=== PATIENT | female | born 1980 | race Caucasian/White ===

== ENCOUNTER 2016-04-09 12:17 | Inpatient (IN) | payer OTHER ==
[~2016-04-09] VITALS: Ht 154.9 cm; Wt 80.7 kg
[~2016-04-09 12:17] MED LIST: BUPROPION HCL150 MG PO; CLONAZEPAM0.5 MG PO; CLONAZEPAM1 M2 PO; FLEXERIL 10MG T10 MG PO; FLEXERIL10 MG PO; GABAPENTIN100 MG PO; HYDROCODONE/ACE1 TA5 PO; IBUPROFEN600 M1 PO; IBUPROFEN800 MG PO; MOBIC15 M1 PO; NAPROXEN500 M1 PO; NORCO 325 MG-51 TAB PO; OXYCODONE5 M1 PO; PANTOPRAZOLE SO40 M1 PO; TRAMADOL50 MG PO; VICODIN ES 3001 TAB PO; WELLBUTRIN XL300 M2 PO; ZOLPIDEM TARTRA10 MG PO
--- NOTE | 2016-04-09 12:40 | NUR ---
PT TO ED WITH C/O INCREASING CONGESTION, SAW THERAPIST THIS MORNING, SHE FELT I SHOULD COME IN FOR A PSYCH EVAL, "I DON'T FEEL SUICIDAL OR FEEL LIKE I'M GOING TO HURT MYSELF OR ANYONE ELSE". "I JUST QUIT DRINKING IT'S BEEN 60 DAYS, AND I QUIT SMOKING TOO, I JUST STARTED A DIET PILL".
--- NOTE | 2016-04-09 12:55 | NUR ---
ARUNA FROM [facility] IN [place] [phone] CALLED WITH PATIENT INFORMATION, SHE REFERRED PATIENT TO ED CARE IN [facility] JUNG CROWELL FOAM TANK LAMINATOR [id number] COUNSELER IS RAQUEL BAUMANN
--- NOTE | 2016-04-09 13:04 | ED PSYCHIATRIC COMPLAINT ---
History of Present Illness General Chief Complaint: Psychiatric Related Complaint Stated Complaint: PSYCH EVAL Source: patient, family Exam Limitations: no limitations Vital Signs & Intake/Output Vital Signs & Intake/Output Vital Signs Date Time Temp Pulse Resp B/P Pulse O2 O2 Flow FiO2 Ox Delivery Rate 04/09 1431 97.2 68 18 122/78 98 Room Air 04/09 1239 96.5 71 20 125/87 99 Room Air Room Air Allergies Coded Allergies: oxycodone (Intermediate, ITCHY/RASH 04/09/16) Reconcile Medications Bupropion HCl (Bupropion XL) 300 MG TAB.ER.24H 1 TAB PO QAM MENTAL HEALTH ( Reported) Bupropion HCl (Bupropion XL) 150 MG TAB.ER.24H 1 TAB PO QAM MENTAL HEALTH ( Reported) Clonazepam 1 MG TABLET 1 TAB PO BID ANXIETY (Reported) Gabapentin 400 MG CAPSULE 1 CAP PO TID MENTAL HEALTH (Reported) Ibuprofen 600 MG TABLET 1 TAB PO TID PRN PAIN with food Pantoprazole Sodium 40 MG TABLET.DR 1 TAB PO BID GI (Reported) Triage Note: PT TO ED WITH C/O INCREASING CONGESTION, SAW THERAPIST THIS MORNING, SHE FELT I SHOULD COME IN FOR A PSYCH EVAL, "I DON'T FEEL SUICIDAL OR FEEL LIKE I'M GOING TO HURT MYSELF OR ANYONE ELSE". "I JUST QUIT DRINKING IT'S BEEN 60 DAYS, AND I QUIT SMOKING TOO, I JUST STARTED A DIET PILL". Triage Nurses Notes Reviewed? yes : No Patient currently breastfeeds: No HPI: Patient sent in from her therapist at [facility] for evaluation of increasing depression and feels hopelessness. Patient denies any suicidal or homicidal medications. Patient just feels that she has no reasons to go on. Patient denies any current hallucinations. Patient states that she goes to [facility] but has seen multiple different providers and changing on her medications. Patient states that she has been taking her medications as prescribed. Past History Travel History Traveled to [place] past 21 day No Medical History Any Pertinent Medical History? 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 No Review of Systems Review of Systems Constitutional: Reports: no symptoms. EENTM: Reports: no symptoms. Respiratory: Reports: no symptoms. Cardiovascular: Reports: no symptoms. GI: Reports: no symptoms. Genitourinary: Reports: no symptoms. Musculoskeletal: Reports: no symptoms. Skin: Reports: no symptoms. Neurological/Psychological: Reports: see HPI, depressed. Hematologic/Endocrine: Reports: no symptoms. Immunologic/Allergic: Reports: no symptoms. All Other Systems: Reviewed and Negative Physical Exam Physical Exam General Appearance: well developed/nourished, mild distress Head: atraumatic Eyes: Bilateral: PERRL, EOMI. Ears, Nose, Throat: normal pharynx, normal ENT inspection, hearing grossly normal Neck: normal inspection, supple Respiratory: normal breath sounds Cardiovascular: regular rate/rhythm Gastrointestinal: soft, non-tender Extremities: normal range of motion Neurological/Psychiatric: no motor/sensory deficits, alert, calm, oriented x 3 Appearance/Memory/Insight: appropriate appearance, appropriate insight Behavoir/Eye Contact/Speech: cooperative, normal speech, good eye contact Thoughts/Hallucinations: normal thought pattern, no apparent hallucination Skin: intact, normal color, warm/dry SAD PERSONS Done? CRISIS CONSULT OBTAINED Progress Differential Diagnosis: drug intoxication, drug overdose, drug withdrawal, electrolyte abnormality Plan of Care: Orders Procedure Date/time Status Regular Diet 04/10 B Active Admit to inpatient psych 04/09 1637 Active URINE 04/09 1627 Active Patient Data - inpatient psych 04/09 1624 Active Admit to inpatient psych 04/09 1624 Active Add-on Test (ER Only) 04/09 1330 Active Continuous Observation Monitor 04/09 1303 Active URINE DRUGS OF ABUSE 04/09 1303 Complete THYROID STIMULATING HORMONE 04/09 1303 Complete TOTAL TRIODOTHYROXINE 04/09 1303 Complete FREE T4 04/09 1303 Complete ETHANOL 04/09 1303 Complete COMPREHENSIVE METABOLIC PANEL 04/09 1303 Complete CBC WITHOUT DIFFERENTIAL 04/09 1303 Complete ED CRISIS PSYCH CONSULT 04/09 1303 Active Vital Signs 04/09 UNK Active Nursing Misc 04/09 UNK Active Alternative Nursing Therapy 04/09 UNK Active Activity/Ambulation 04/09 UNK Active Current Medications Sig/Micaela Start time Last Medication Dose Stop Time Status Admin Bupropion HCl 450 MG DAILY@0800 04/10 0800 UNVr (Wellbutrin XL) Omeprazole 40 MG DAILY AC 04/10 0700 UNVr (Prilosec) Gabapentin 400 MG TID 04/09 2200 UNVr (Neurontin) Ibuprofen 600 MG Q6P PRN 04/09 164 UNVr (Motrin) Lorazepam 1 MG ONE ONE 04/09 164 UNVr (Ativan) 04/09 1646 Al Hydroxide/Mg 30 ML Q4-6 PRN PRN 04/09 1630 UNVr Hydroxide (Maalox Plus) Clonazepam 0.5 MG Q8P PRN 04/09 163 UNVr (KlonoPIN) 04/16 1629 Magnesium Hydroxide 30 ML AT BEDTIME PRN 04/09 1630 UNVr (Milk Of Magnesia) Trazodone HCl 50 MG AT BEDTIME NEED.. 04/09 1630 UNVr (Desyrel) Laboratory Tests 04/09/16 1434: Urine Opiates Screen < 100.00, Methadone Screen < 40, Barbiturate Screen < 60, Ur Phencyclidine Scrn < 6.00, Amphetamines Screen 464, U Benzodiazepines Scrn < 85, Urine Cocaine Screen < 50, Urine Cannabis Screen < 5.00 04/09/16 1356: Anion Gap 11, Estimated GFR > 60, BUN/Creatinine Ratio 11.1, Glucose 119 H, Calcium 9.5, Total Bilirubin 0.7, AST 21, ALT 31, Alkaline Phosphatase 64, Total Protein 7.9, Albumin 4.4, Globulin 3.5, Albumin/Globulin Ratio 1.3, TSH 1.340, Free T4 0.96, Total T3 1.43, CBC w Diff NO MAN DIFF REQ, RBC 4.43, MCV 87.9, MCH 29.2, RDW 13.4, MPV 8.4, Gran % 68.5, Lymphocytes % 24.1, Monocytes % 5.8, Eosinophils % 1.3, Basophils % 0.3, Absolute Granulocytes 6.9 H, Absolute Lymphocytes 2.4, Absolute Monocytes 0.6, Absolute Eosinophils 0.1, Absolute Basophils 0, PUBS MCHC 33.2, Serum Alcohol < 10.0 Departure Departure Disposition: STILL A PATIENT Condition: Stable Clinical Impression Primary Impression: Depression Qualifiers: Depression Type: unspecified Qualified Code: F32.9 - Major depressive disorder, single episode, unspecified Referrals: Lucas MEZA MD (PCP/Family) Departure Forms: Customer Survey General Discharge Information Psych Admission Note Psychiatric Admission: I have seen and evaluated JORJE DE LA FUENTE. I have also reviewed all the pertinent lab results and diagnostic results. JORJE DE LA FUENTE will be admitted to our inpatient Psychiatric unit for treatment and care.
--- NOTE | 2016-04-09 13:08 | NUR ---
MD AT BEDSIDE AT THIS TIME
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
[2016-04-09 14:03] LABS: ABSOLUTE BASOPHIL COUNT 0 /CUMM (0.0-0.2)
[2016-04-09 14:06] LABS: ABSOLUTE EOSINOPHIL COUNT 0.1 /CUMM (0.0-0.7); ABSOLUTE MONOCYTE COUNT 0.6 /CUMM (0.10-0.60); MEAN PLATELET VOLUME 8.4 FL (7.4-10.4); RED BLOOD CELL CT 4.43 /CUMM (4.20-5.40)
[2016-04-09 14:08] LABS: ABSOLUTE GRANULOCYTE CT 6.9 /CUMM (1.4-6.5); ABSOLUTE LYMPH COUNT 2.4 /CUMM (1.2-3.4); BASOPHIL % 0.3 % (0.0-2.0); EOSINOPHIL % 1.3 % (0-5); GRANULOCYTE % 68.5 % (42.2-75.2); MEAN CORPUSCULAR HGB 29.2 PG (27.0-31.0); MEAN CORPUSCULAR HGB CONC 33.2 G/DL (33.0-37.0); MEAN CORPUSCULAR VOLUME 87.9 FL (81.0-99.0); PLATELET COUNT 338 /CUMM (130-400); RBC DISTRIBUTION WIDTH 13.4 % (11.5-14.5); WHITE BLOOD CELL COUNT 10.1 /CUMM (4.8-10.8)
[2016-04-09] MEDS ORDERED: BUPROPION XL150 MG PO (14:24)
[2016-04-09] MEDS ORDERED: BUPROPION XL300 M1 PO (14:24)
[2016-04-09] MEDS ORDERED: GABAPENTIN400 M2 PO (14:25)
--- NOTE | 2016-04-09 14:37 | NUR ---
URINE TRIO SENT TO THE LAB
--- NOTE | 2016-04-09 15:49 | NUR ---
PT MEDICATED WITH 1 MG ATIVAN PO FOR ANXIETY. CRISIS COUNSELOR AT BEDSIDE FOR PT EVAL
--- NOTE | 2016-04-09 16:48 | NUR ---
PT TO BE ADMITTED TO CPS. PT MEDICATED WITH ANOTHER 1 MG ATIVAN PO ORDERED
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
--- NOTE | 2016-04-09 18:46 | NUR ---
REPORT GIVEN TO RJ STOKES
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
--- NOTE | 2016-04-09 18:59 | NUR ---
PT TRANSPORTED TO [facility] BY FEMALE TECH AND OUTSIDE SALES ACCOUNT EXECUTIVE. ALL BELONGINGS AND CHART SENT WITH PATIENT
[2016-04-09 19:55] VITALS: BP 140/92
--- NOTE | 2016-04-09 20:03 | NUR ---
Patient admitted from ED. Patient calm and cooperative. Able to express needs in coherent manner. Patient reports multiple ailments and injuries over the past few years. Patient reports current abdominal cramping with pink vaginal discharge, HOD aware. Patient reports some recreational drug use in the past 3 months. PAtient does report some anxiety, but control with "ativan given in ED". Patient skin clean dry and intact. Patient reports recent poor sleep and food intact normal. Patient proud of 60 days of soberity and plans to continue. Looking forward to assisting Rosmery with mental health.
--- NOTE | 2016-04-09 23:15 | History & Physical ---
General Information and HPI MD Statement: I have seen and personally examined JORJE DE LA FUENTE and documented this H&P. The patient is a 35 year old F who presented with a patient stated chief complaint of [unstable mood, SI]. Source of Information: patient Exam Limitations: no limitations History of Present Illness: 35 yo obese F with h/o anxiety, depression, bipolar disoder, previous alcohol use, GERD, cervical cancer s/p surgery is admitted to Inpatient psychiatry for unstable mood and suicidal ideation. She has a h/o polysubstance abuse with cocaine and alcohol, but has been sober since Jan with [facility]. She had quit smoking in Jan 2016, but has had a few cigarettes off and on since. Currently reports c/o 'pinkish vaginal discharge' non-foul smelling, with lower abdominal cramps like menstrual cramps, that started few days ago. She reports, she gets these symptoms whenever she has bacterial vaginosis. LMP was 2 weeks ago. She also suspects that whenever she has intercourse with her boyfriend she develops this. Last intercourse was Mar 30. She is not sure, but thinks she may have left a tampon inside and forgotten to remove it. She reports having done this in the past. No fever or chills. No nausea, vomiting or diarrhea. No chest pain, dyspnea, palpitations. No urinary symptoms. Of note, she reports having a 'heart murmur' ?mitral regurgitation, and was to follow up with Dr. Briseno for an echocardiogram. Allergies/Medications Allergies: Coded Allergies: oxycodone (Intermediate, ITCHY/RASH 04/09/16) Home Med list Bupropion HCl (Bupropion XL) 300 MG TAB.ER.24H 1 TAB PO QAM MENTAL HEALTH ( Reported) Bupropion HCl (Bupropion XL) 150 MG TAB.ER.24H 1 TAB PO QAM MENTAL HEALTH ( Reported) Clonazepam 1 MG TABLET 1 TAB PO BID ANXIETY (Reported) Gabapentin 400 MG CAPSULE 1 CAP PO TID MENTAL HEALTH (Reported) Ibuprofen 600 MG TABLET 1 TAB PO TID PRN PAIN with food Pantoprazole Sodium 40 MG TABLET.DR 1 TAB PO BID GI (Reported) Compliance With Home Meds: UNKNOWN Past History Travel History Traveled to [place] past 21 day No Medical History Neurological: NONE EENT: NONE Cardiovascular: NONE Respiratory: asthma Gastrointestinal: GERD Hepatic: NONE Renal: NONE Musculoskeletal: NONE Psychiatric: anxiety, bipolar disease, chronic pain disorder, depression Endocrine: NONE Blood Disorders: NONE Cancer(s): NONE PLOW SHAKER/Reproductive: yeast infections Isolation History: Standard Surgical History Surgical History: cholecystectomy, , ABDOMINAL SCAR TISSUE REM TONSILLECTOMY DEVIATED SEPTUM ADNOID REMOVAL FALLOPIAN TUBE REMOVAL Past Family/Social History Family History Relations & Conditions if any MOTHER (Breast cancer). Maternal grandmother (Uterine cancer). Psychosocial History Where do you live? Home Who Do You Live With? self Services at Home: None Primary Language: Burkinan Smoking Status: Current Some Day Smoker ETOH Use: QUIT 60 DAYS CLEAN Illicit Drug Use: denies illicit drug use Functional Ability ADLs Independent: dressing, eating, toileting, bathing. Ambulation: independent IADLs Independent: housework, telephone, transportation. Sexual History Sexually Active Yes # of partners 1 Employment History Employment Unemployed Profession/Employer Lst worked at [employer] 2014 Review of Systems Review of Systems Constitutional: Denies: chills, fever, weakness. EENTM: Reports: no symptoms. Cardiovascular: Denies: chest pain, orthopena, palpitations, syncope. Respiratory: Denies: cough, sputum production, wheezing. GI: Reports: abdominal pain. Denies: constipation, diarrhea, nausea, vomiting. Genitourinary: Reports: discharge. Denies: dysuria, frequency, hesitation. Musculoskeletal: Reports: no symptoms. Neurological/Psychological: Reports: see HPI. All Other Systems: Reviewed and Negative Exam & Diagnostic Data Last 24 Hrs of Vital Signs/I&O Vital Signs Date Time Temp Pulse Resp B/P Pulse O2 O2 Flow FiO2 Ox Delivery Rate 04/09 1954 98.5 81 140/92 04/09 1841 78 14 122/71 98 04/09 1642 98.4 90 18 153/91 97 Room Air 04/09 1431 97.2 68 18 122/78 98 Room Air 04/09 1239 96.5 71 20 125/87 99 Room Air Room Air Intake & Output 04/10 0800 04/10 0000 04/09 1600 Intake Total 0 Output Total Balance 0 Intake, Oral 0 Patient 178 lb 170 lb Weight Physical Exam General Appearance Alert, Oriented X3, Cooperative, No Acute Distress Skin No Rashes, No Breakdown HEENT Atraumatic, PERRLA, EOMI Neck Supple Cardiovascular Regular Rate, Normal S1, Normal S2, Faint systolic murmur. Lungs Clear to Auscultation, Normal Air Movement Abdomen Normal Bowel Sounds, Soft, Lower abdominal tenderness. Neurological Exam Findings: Normal Speech, Strength at 5/5 X4 Ext, Cranial Nerves 3-12 NL, Reflexes 2+ Cranial Nerves II through XII: Intact Extremities No Edema, Normal Pulses, No Tenderness/Swelling Last 24 Hrs of Labs/Daniele: Laboratory Tests 04/09/16 1627: Urine Test Cancelled 04/09/16 1434: Urine Opiates Screen < 100.00, Methadone Screen < 40, Barbiturate Screen < 60, Ur Phencyclidine Scrn < 6.00, Amphetamines Screen 464, U Benzodiazepines Scrn < 85, Urine Cocaine Screen < 50, Urine Cannabis Screen < 5.00 04/09/16 1356: Anion Gap 11, Estimated GFR > 60, BUN/Creatinine Ratio 11.1, Glucose 119 H, Calcium 9.5, Total Bilirubin 0.7, AST 21, ALT 31, Alkaline Phosphatase 64, Total Protein 7.9, Albumin 4.4, Globulin 3.5, Albumin/Globulin Ratio 1.3, TSH 1.340, Free T4 0.96, Total T3 1.43, Total Beta HCG NEGATIVE, CBC w Diff NO MAN DIFF REQ , RBC 4.43, MCV 87.9, MCH 29.2, RDW 13.4, MPV 8.4, Gran % 68.5, Lymphocytes % 24.1, Monocytes % 5.8, Eosinophils % 1.3, Basophils % 0.3, Absolute Granulocytes 6.9 H, Absolute Lymphocytes 2.4, Absolute Monocytes 0.6, Absolute Eosinophils 0.1, Absolute Basophils 0, PUBS MCHC 33.2, Serum Alcohol < 10.0 Diagnostic Data EKG Results -- CXR Results -- Assessment/Plan Assessment: 35 yo obese F with h/o anxiety, depression, bipolar disoder, previous alcohol use, GERD, cervical cancer s/p surgery is admitted to Inpatient psychiatry for unstable mood and suicidal ideation. Continue management per Psych team. GERD. Continue protonix BID. Suspicion of bacterial vaginosis - initiate Flagyl 500 mg TID for 7 days. Please obtain ObGyn consult to assess for retained tampon, needs per speculum examination. Check urinalysis to assess for bacteriuria, although patient is asymptomatic, no dysuria or frequency. Smoking cessation counseling. DVT ppx - low risk, early ambulation. As Ranked By This Provider Problem List: 1. Bipolar disorder 2. Depression Qualifiers Depression Type: unspecified Qualified Code: F32.9 - Major depressive disorder, single episode, unspecified 3. Suicidal ideation 4. Bacterial vaginosis Miscellaneous Miscellaneous Documentation Attending Case Discussed With: JAYLENE JAMES MD Primary Care Physician: Lucas MEZA MD Patient sees these Specialists -- Level of Patient Care: ISAIAS Montalvo Attending MD Review Statement Attending Statement Attending MD Statement: examined this patient
--- NOTE | 2016-04-10 01:46 | Admission Certification ---
Admission Certification Certification Statement - As attending physician, I certify that at the time of - admission, based on clinical presentation, severity of - symptoms, need for further diagnostic testing and - therapeutic interventions, and risk of adverse outcomes - without in-hospital treatment, in my clinical assessment, - this patient requires an acute hospital stay for a minimum - of two nights or longer. I have also considered psychsocial - factors such as support system, advanced age, financial - issues, cognitive issues, and failed out-patient treatments, - past re-admission history, safety of patient, and lack of - compliance as applicable. Specific rationale supporting this admission is: Bipolar disoder.
--- NOTE | 2016-04-10 06:02 | NUR ---
PT WAS IRRATIONALLY UPSET AT 2100- "I AM NOT HERE FOR SUBSTANCE ABUSE". STAFF TRIED TO REASSURE HER MEDS WOULD BE ADJUSTED TO HELP TO APPROPRIATE MEDS AND AMOUNTS. SECURITY WAS CALLED WHEN THE PATIENT WAS HOLLERING AND SWEARING. AFTER A PERIOD OF ATTEMPTED EXPLAINATONS, THE PATIENT WAS ABLE TO CALM DOWN. SHE TOOK EVENING AND NIGHT MEDS AND WAS APOLOGETIC LATER. THE PATIENT APPEARED TO SLEEP WELL.
[2016-04-10 07:35] VITALS: BP 105/72
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
[2016-04-10 12:19] VITALS: BP 124/68
--- NOTE | 2016-04-10 12:53 | NUR ---
Patient is A&O X 3, compliant with medication and group therapies. Pt verbalized trying to adjust in the community, keeps apologizing for her unruly behavior yesterday. Patient has made multiple request to assist her personal hygiene. Patient has order for OBGYN consult to evaluate/address her lower abdominal pain with vaginal blood tinge discharge. When questioned, pt denied thought of self-harm and to someone else.
--- NOTE | 2016-04-10 16:00 | NUR ---
Called the office of Dr Sexton for the OBGYN consultation ordered by Dr Rodriguez on behalf of the patient. Dr Sexton eventually returned call but questioning the rationale and relevancy of seeing this patient hence she sees the reported sign & symptom as not a medical emergency and also not sure if the insurance will cover the cost. This information was immediately made available to DR Rodriguez who promise the call Dr Sexton tomorrow morning to clarify her point of not trying to see this patient.
[2016-04-10 16:17] VITALS: BP 133/71
[2016-04-10 19:44] VITALS: BP 122/54
--- NOTE | 2016-04-10 21:06 | NUR ---
Pt is out in the kt loud and inappropriate while in the kt. Pt mood is stable compliant and cooperative with the staff. Vital signs are stable appetite is good. Will continue to monitor the pt overnight.
[2016-04-11 07:40] VITALS: BP 119/65
--- NOTE | 2016-04-11 10:42 | NUR ---
PT GOT INTO VERBAL ALTERCATION WITH ANOTHER FEMALE PT OVER THE USE OF THE PHONE. SHE WAS LOUD AND USING VERY FOUL LANGUAGE AND GESTURING AND POINTING FINGERS IN AN AGGRESSIVE MANNER. SECURITY WAS CALLED AND PRN GIVEN. WILL MONITOR EFFECT
--- NOTE | 2016-04-11 11:34 | CP SOUTH PROGRESS NOTE PSYCH ---
Psych (Inpt) Progress Note Progress Note Include the following elements, when applicable: Involvement in the active treatment of the patient with behavioral observations of the patient and the patient's response to the treatment. Review of the ongoing treatment process in the context of the treatment plan. Indication of how multi-disciplinary staff members are carrying out the treatment plan. Plans for future interventions and recommendations for revision of the treatment plan. Liaison with other physicians/providers. Progress Note: Pt had verbal altercation with another patient today over the phone. She notes that she has continued pelvic cramping and well as discharge. She is concerned that tampon left in. She also notes some constipation. Pt notes very irritable and labile at times, "I just went off sometimes." Denies SI or HI. Denies psychotic or manic sx. Current Medications Sig/Micaela Start time Last Medication Dose Route Stop Time Status Admin Al Hydroxide/Mg 30 ML Q4-6 PRN PRN 04/09 1630 AC Hydroxide PO Bupropion HCl 450 MG DAILY@0800 04/10 0800 AC 04/11 PO 0930 Clonazepam 0.5 MG DAILY 04/12 1000 AC PO 04/19 0959 Clonazepam 0.5 MG DAILY AC 04/11 0700 DC 04/11 PO /05 0659 0708 Clonazepam 1 MG AT BEDTIME 04/10 2200 AC 04/10 PO 04/17 2159 2200 Docusate Sodium 100 MG BID 04/11 1125 UNVr PO Gabapentin 400 MG 2200,0800,1600 04/10 2200 DC PO Gabapentin 400 MG 0800,1400,2200 04/10 2200 DC PO Gabapentin 400 MG 0800,1400,0 04/10 1400 AC 04/11 PO 0930 Gabapentin 400 MG TID 04/09 2200 DC 04/10 PO 1340 Hydroxyzine HCl 50 MG Q6PRN PRN 04/10 1115 AC 04/11 PO 1013 Ibuprofen 600 MG Q6P PRN 04/09 1645 AC PO Lamotrigine 25 MG DAILY 04/11 1126 UNVr PO Magnesium Hydroxide 30 ML AT BEDTIME PRN 04/09 1630 AC 04/11 PO 0711 Metronidazole 500 MG Q8 04/10 2200 DC PO 04/17 1401 Metronidazole 500 MG 0800,1400,2200 04/10 2200 AC 04/11 PO 04/17 1401 0930 Metronidazole 500 MG Q8 04/09 2315 DC 04/10 PO 04/16 1401 1336 Omeprazole 40 MG 0700,2200 04/10 0700 AC 04/11 PO 0707 Senna/Docusate Sodium 1 TAB BID 04/11 1125 UNVr PO Trazodone HCl 50 MG AT BEDTIME 04/10 2200 AC 04/10 PO 2200 Laboratory Tests 04/11 04/11 04/09 0542 0542 1627 Chemistry Vitamin B12 (239 - 931 pg/mL) 358 Serology RPR Titer/FTA Pending Hepatitis A IgM Ab (NONREACTIVE) Pending Hep Bs Antigen (NONREACTIVE) Pending Hep B Core IgM Ab Conf (NONREACTIVE) Pending Hepatitis C Antibody (NONREACTIVE) Pending HIV 1&2 Ab Western Blot (NONREACTIVE) Pending Urines Urine Test Cancelled 04/09 04/09 1434 1356 Chemistry Sodium (137 - 145 mmol/L) 139 Potassium (3.5 - 5.1 mmol/L) 4.3 Chloride (98 - 107 mmol/L) 102 Carbon Dioxide (22 - 30 mmol/L) 26 Anion Gap (5 - 16) 11 BUN (7 - 17 mg/dL) 10 Creatinine (0.5 - 1.0 mg/dL) 0.9 Estimated GFR (>60 ml/min) > 60 BUN/Creatinine Ratio (7 - 25 %) 11.1 Glucose (65 - 99 mg/dL) 119 H Calcium (8.4 - 10.2 mg/dL) 9.5 Total Bilirubin (0.2 - 1.3 mg/dL) 0.7 AST (14 - 36 U/L) 21 ALT (9 - 52 U/L) 31 Alkaline Phosphatase (<127 U/L) 64 Total Protein (6.3 - 8.2 g/dL) 7.9 Albumin (3.5 - 5.0 g/dL) 4.4 Globulin (1.9 - 4.2 gm/dL) 3.5 Albumin/Globulin Ratio (1.1 - 2.2 %) 1.3 TSH (0.270 - 4.200 uIU/mL) 1.340 Free T4 (0.79 - 2.35 ng/dL) 0.96 Total T3 (0.97 - 1.69 ng/mL) 1.43 Total Beta HCG (NEGATIVE) NEGATIVE Hematology CBC w Diff NO MAN DIFF REQ WBC (4.8 - 10.8 /CUMM) 10.1 RBC (4.20 - 5.40 /CUMM) 4.43 Hgb (12.0 - 16.0 G/DL) 12.9 Hct (37 - 47 %) 39.0 MCV (81.0 - 99.0 FL) 87.9 MCH (27.0 - 31.0 PG) 29.2 RDW (11.5 - 14.5 %) 13.4 Plt Count (130 - 400 /CUMM) 338 MPV (7.4 - 10.4 FL) 8.4 Gran % (42.2 - 75.2 %) 68.5 Lymphocytes % (20.5 - 51.1 %) 24.1 Monocytes % (1.7 - 9.3 %) 5.8 Eosinophils % (0 - 5 %) 1.3 Basophils % (0.0 - 2.0 %) 0.3 Absolute Granulocytes (1.4 - 6.5 /CUMM) 6.9 H Absolute Lymphocytes (1.2 - 3.4 /CUMM) 2.4 Absolute Monocytes (0.10 - 0.60 /CUMM) 0.6 Absolute Eosinophils (0.0 - 0.7 /CUMM) 0.1 Absolute Basophils (0.0 - 0.2 /CUMM) 0 PUBS MCHC (33.0 - 37.0 G/DL) 33.2 Toxicology Urine Opiates Screen (>2000 NG/ML) < 100.00 Methadone Screen (>300 NG/ML) < 40 Barbiturate Screen (>200 NG/ML) < 60 Ur Phencyclidine Scrn (>25 NG/ML) < 6.00 Amphetamines Screen (>1000 NG/ML) 464 U Benzodiazepines Scrn (>200 NG/ML) < 85 Urine Cocaine Screen (>300 NG/ML) < 50 Urine Cannabis Screen (>50 NG/ML) < 5.00 Serum Alcohol (<10 MG/DL) < 10.0 Urines Urine Color (YEL,AMB,STR) STRAW Urine Clarity (CLEAR) CLEAR Urine pH (5.0 - 8.0) 6.0 Ur Specific [place] (1.001 - 1.035) <= 1.005 Urine Protein (NEG,<30 MG/DL) NEG Urine Ketones (NEG) NEG Urine Nitrite (NEG) NEG Urine Bilirubin (NEG) NEG Urine Urobilinogen (0.1 - 1.0 EU/dl) 0.2 Ur Leukocyte Esterase (NEG) NEG Ur Microscopic EXAM NOT REQUIRED Urine Hemoglobin (NEG) NEG Urine Glucose (N MG/DL) NEG Vital Signs Date Time Temp Pulse Resp B/P Pulse O2 O2 Flow FiO2 Ox Delivery Rate 04/11 0740 97.2 82 119/65 04/10 1944 99.0 94 122/54 04/10 1617 81 133/71 04/10 1219 78 124/68 MSE Appears as stated age. Cooperative behavior, good, appropriate eye contact. Nl speech rate and prosody. No psychomotor retardation or agitation. Mood "I went off this mornin, I'm so sorry" Affect irritable, depressed, constricted, appropriate, non-liable. Linear and goal directed thought process. Denies SI or HI. Does not appear to be responding to internal stimuli. Denies AVHs, paranoia, or delusions. I/J: limited A/P: Pt with PTSD, Bipolar disorder, DEEP- cocaine, and AUD with labile mood, irritability, and depression. Pt was unable to tolerate VPA or Ackerly in the past. - Start Lamictal 25mg daily, discussed r/b/se including but not limited to SJS and rash. - Starte senna and colace for constipation - Called Dr. Sexton, BOOKKEEPING MACHINE OPERATOR, this AM as pt was not seen yesterday despite the consult being placed and MD being called. She is to see patient shortly. - Continue wellbutrin at 450mg dose, pt may benefit from switch to less activating anti-depressant, does not want to switch yet - Otherwise, continue current medication regimen - Encourage intergration into the milieu
[2016-04-11 12:21] VITALS: BP 115/62
--- NOTE | 2016-04-11 13:31 | Cons- OBGYN ---
General Information and HPI Consulting Request Date of Consult: 04/11/16 Requested By: JAYLENE JAMES MD Reason for Consult: ? RETAINED TAMPON Source of Information: patient Exam Limitations: no limitations History of Present Illness: 35 YO GI PI W/ off and on mild mentrual type cramping and ? vag "pink discharge " w/ +/- odor. Pt LMP was Mid March and she used tampons as per usual. Now she is questioning if she has a retained tampon. Later in the exam pt stated that she had also noted not very mild intermittent external irritation. BLOCK TRIMMER hx: She is currently under the care of Dr Rose, [facility], and is up to date with her BLOCK TRIMMER care and has had a pap in the last 6 months (NL cytology) 18 yo son delivered by c/s (Dr Osorio @ [facility]) 6 to 8 laparoscopic procedures for LLQ pain - "pelvic adhisions" that have unfortunately recurred. had laparoscopic LT Salpingectomy due to adhesions (NO H/O PID) H/O moderate cervical dysplasia - s/p one cryo TX and one LEEP. last pap w/ her BLOCK TRIMMER Dr Rose within the last 6 months - NL Cytology but "B.V. Txed" Allergies/Medications Allergies: Coded Allergies: oxycodone (Intermediate, ITCHY/RASH 04/09/16) Home Med List: Bupropion HCl (Bupropion XL) 300 MG TAB.ER.24H 1 TAB PO QAM MENTAL HEALTH ( Reported) Bupropion HCl (Bupropion XL) 150 MG TAB.ER.24H 1 TAB PO QAM MENTAL HEALTH ( Reported) Clonazepam 1 MG TABLET 1 TAB PO BID ANXIETY (Reported) Gabapentin 400 MG CAPSULE 1 CAP PO TID MENTAL HEALTH (Reported) Ibuprofen 600 MG TABLET 1 TAB PO TID PRN PAIN with food Pantoprazole Sodium 40 MG TABLET. 1 TAB PO BID GI (Reported) Current Medications: Current Medications Sig/Micaela Start time Last Medication Dose Route Stop Time Status Admin Al Hydroxide/Mg 30 ML Q4-6 PRN PRN 04/09 1630 AC Hydroxide PO Bupropion HCl 450 MG DAILY@0800 04/10 0800 AC 04/11 PO 0930 Clonazepam 0.5 MG DAILY 04/12 1000 AC PO 04/19 0959 Clonazepam 0.5 MG DAILY AC 04/11 0700 DC 04/11 PO 04/18 0659 0708 Clonazepam 1 MG AT BEDTIME 04/10 2200 AC 04/10 PO / 2159 2200 Docusate Sodium 100 MG BID 04/11 1125 AC PO Gabapentin 400 MG 2200,0800,1600 04/10 2200 DC PO Gabapentin 400 MG 0800,1400,2200 04/10 2200 DC PO Gabapentin 400 MG 0800,1400,2200 04/10 1400 AC 04/11 PO 0930 Gabapentin 400 MG TID 04/09 2200 DC 04/10 PO 1340 Hydroxyzine HCl 50 MG Q6PRN PRN 04/10 1115 AC 04/11 PO 1013 Ibuprofen 600 MG Q6P PRN 04/09 1645 AC PO Lamotrigine 25 MG DAILY 04/11 1126 AC PO Magnesium Hydroxide 30 ML AT BEDTIME PRN 04/09 1630 AC 04/11 PO 0711 Metronidazole 500 MG Q8 04/10 2200 DC PO 04/17 1401 Metronidazole 500 MG 0800,1400,2200 04/10 2200 AC 04/11 PO 04/17 1401 0930 Metronidazole 500 MG Q8 04/09 2315 DC 04/10 PO 04/16 1401 1336 Omeprazole 40 MG 0700,0 04/10 0700 AC 04/11 PO 0707 Senna/Docusate Sodium 1 TAB BID 04/11 1125 AC PO Trazodone HCl 50 MG AT BEDTIME 04/10 2200 AC 04/10 PO 2200 Past History Medical History Blood Transfusion Hx: No Neurological: NONE EENT: NONE Cardiovascular: NONE Respiratory: asthma Gastrointestinal: GERD Hepatic: NONE Renal: NONE Musculoskeletal: NONE Psychiatric: anxiety, bipolar disease, chronic pain disorder, depression Endocrine: NONE Blood Disorders: NONE Cancer(s): NONE BLOCK TRIMMER/Reproductive: bacterial vaginitis, yeast infections, crervical dysplasia - s /p one cryo, one LEEP - last pap was within 6 mo "[facility] Cytology" -has BLOCK TRIMMER in [place]: DR Rose h/o recurrent pelvic adhesions - 6 to 7 laparoscopies Surgical History Pertinent Surgical History: cholecystectomy, , ABDOMINAL SCAR TISSUE REM TONSILLECTOMY DEVIATED SEPTUM ADNOID REMOVAL FALLOPIAN TUBE REMOVAL, 6 to 7 laparoscopies for LLQ pain -Recurrent "pelvic adhesions" cryo TX cervical dysplasia LEEP for cervical dyspalsia (MOD) Family History Relations & Conditions If Any: MOTHER (Breast cancer). Maternal grandmother (Uterine cancer). Psychosocial History Where Do You Live? Home Who Do You Live With? self Services at Home: None Primary Language: Yi Smoking Status: Current Some Day Smoker ETOH Use: QUIT 60 DAYS CLEAN Illicit Drug Use: denies illicit drug use Functional Ability ADLs Independent: dressing, eating, toileting, bathing. Ambulation: independent IADLs Independent: housework, telephone, transportation. 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 Review of Systems Review of Systems: Currently Negative for GI, GI cardiac or pulmonary complaints Exam & Diagnostic Data Vital Signs and I&O Vital Signs Date Time Temp Pulse Resp B/P Pulse O2 O2 Flow FiO2 Ox Delivery Rate 04/11 1221 77 16 115/62 04/11 0740 97.2 82 119/65 04/10 1944 99.0 94 122/54 04/10 1617 81 133/71 Intake & Output 04/11 1600 04/11 0800 04/11 0000 04/10 1600 04/10 0800 04/10 0000 Intake Total Output Total Balance Patient 178 lb Weight Physical Exam General Appearance: well developed/nourished, no apparent distress, alert, awake Gastrointestinal: soft, non-tender, no organomegaly, no guarding no rebound Extremities: normal inspection Neurologic/Psych: awake, alert, oriented x 3, normal gait Pelvic: Appearance Normal, exterinal skin - no rash no lesions noted- nl clitoris and urethra Vagina scant discharge, no odor, NO retained tampon by speculum exam or digital palpation. NO Bleeding or spotting noted @ this time- no pink discharge boted vag c/s taken NO PAP taken (not indicated) cervix clean no cercival motion tenderness Uterus nontender nl size and shape andexa nontender and non-palpable rectral deferred Last 24 Hours of Labs: Laboratory Tests 04/11 04/11 0542 0542 Chemistry Vitamin B12 (239 - 931 pg/mL) 358 Serology RPR Titer/FTA Pending Hepatitis A IgM Ab (NONREACTIVE) NONREACTIVE Hep Bs Antigen (NONREACTIVE) NONREACTIVE Hep B Core IgM Ab Conf (NONREACTIVE) NONREACTIVE Hepatitis C Antibody (NONREACTIVE) NONREACTIVE HIV 1&2 Ab Western Blot (NONREACTIVE) NONREACTIVE Assessment/Plan Assessment/Plan 35 yo (NEG HCG) who was concerned with ? vaginal odor and ? of a possible retained tampon. Pt was started on Flagyl last pm orally. Exam showed no evidence of acute vaginitis and NO retained tampon. No odor was noted on exam and no bleeding or spotting noted in the vagina. Vaginal c/s was taken today. Pt may continue on the PO Flagyl as previously Rxed Pt has noted some off /on external irritation or itching. (No rash, excoriation, rash, vesicles or lesions noted) I called pharmacy and asked for an external cream (Beta-methasone + clotrimazole) to be rxed for this pt to use externally. (Greast non-specific rx for external irritation of no specific etiology.) This will be provided. Pt is to apply the cream liberally to vulvar area 2 x a day for 2 to 3 wks as needed. Problem List: 1. Depression 2. Bipolar disorder 3. Bacterial vaginosis Consult Acknowledgment - Thank you for your consult request. Attending MD Review Statement Attending Statement Attending MD Statement: examined this patient, reviewed EMR data (avail), discussed w/nursing Attending Assessment/Plan: Anika Sexton MD
--- NOTE | 2016-04-11 14:28 | NUR ---
PT HAS BEEN LABILE TODAY- BECAME ANGRY/AGGITATED AT A PEER, THEN PROCEEDED TO BECOME TEARFUL AND EVENTUALLY, BRIGHT. PT HAS BEEN APOLOGETIC FOR HER BEHAVIOR AND VERBALIZED UNDERSTANDING OF RULES AND BEHAVIOR. PT DENIES SI AT THIS TIME, C/O PAIN. PT IS PRESENT IN THE COMMUNITY AND INTERACTING WELL WITH PEERS AND STAFF. PT IS ATTENDING GROUPS. VITALS ARE STABLE, APPETITE IS GOOD.
[2016-04-11 16:22] VITALS: BP 137/76
[2016-04-11 19:43] VITALS: BP 120/75
--- NOTE | 2016-04-11 22:58 | NUR ---
PT IS CALM, COOPERATIVE WITH STAFF AND PEERS, AND COMPLINAT WITH UNIT RULES. PT IS OFTEN IN [place], SPENDING TIME WITH PEERS, OVERALL INTERACTING WELL WITH OTHERS. MOOD IS STABLE, AFFECT IS EUTHYMIC TO FULL RANGE, COMMUNICATION IS NORMAL AND SLIGHTLY LOUD, AND APPETITE IS NORMAL. PT DENIES SI AT THIS TIME.
[2016-04-12 07:40] VITALS: BP 136/65
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
--- NOTE | 2016-04-12 11:52 | SOCIAL WORKER TX PLAN PSYCH ---
Treatment Plan - Please Document: - Evidence that there is ongoing collaboration between - the patient and the interdisciplinary team, - including the patient's active participation and - responsibility for engaging in the treatment regimen, - and that the treatment plan is individualized and - relevant to the patient's conditions. - Treatment plan should reflect documentation indicating - that all active therapeutic efforts are included. Strengths/Capabilities: Patient has insight into triggers to use and has remained sober for two months. Physical Limitations (Interventions): None Patient Identified Trmt Goals: " I want to get my life in order and move on." Discharge Plan: IOP Problem/Goals #1 Problem #1: suicidal ideation Goal (Short Term): Today I will attend 2 groups Today I will identify 2 stressors Today I will identify 2 positive supports Today I will work on recognizing 3 emotions I am feeling Goal (Health Systems Analyst): Be free of suicidal thoughts/attempts Develop 3 coping skills to deal with depression Identify 3 positive support systems to call in crisis Develop a crisis plan with 3 coffman people Identify 2 positive traits per week about myself Identify 2 things I have to look forward to Identify 2 positive people in my life and 1 thing I appreciate about them Interventions: Learn ways to manage depressive symptoms accordingly and identify positive supports to manage life stressors and mood fluctuations. Modalities: Encourage groups, education on depression, provide CBT treatment, family meeting. 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
[2016-04-12 12:21] VITALS: BP 124/69
--- NOTE | 2016-04-12 14:56 | NUR ---
PT IS OUT IN COMMUNITY INTEACTING WITH STAFF AND PEERS. PT IS COMPLIANT AND COOPERATIVE WITH TREATMENT. PT IS ACTIVE IN GROUPS. PT MOOD IS STABLE WITH A FULL RANGE AFFECT. PT DENIES SI THOUGHTS
[2016-04-12 15:51] VITALS: BP 127/67
--- NOTE | 2016-04-12 17:58 | CP SOUTH PROGRESS NOTE PSYCH ---
Psych (Inpt) Progress Note Progress Note Progress Note: I discussed this patient's progress to date, current mental status, treatment process in the context of the treatment plan, and discharge planning with staff/ team in the daily morning inpatient team meeting. I also met with the patient myself in individual session. A total of 25 minutes was spent with the patient with more than 50% spent in counseling and/or coordination of care. SUBJECTIVE: "I had said to my counselor "sometimes I don't want to be on this earth". But that doesn't mean that I'm suicidal. I'm not suicidal." OBJECTIVE: Current Medications Sig/Micaela Start time Last Medication Dose Route Stop Time Status Admin Al Hydroxide/Mg 30 ML .STK-MED ONE 04/11 1831 DC Hydroxide PO 04/11 183 Al Hydroxide/Mg 30 ML Q4-6 PRN PRN 04/09 1630 AC 04/11 Hydroxide PO 1837 Bupropion HCl 450 MG DAILY@0800 04/10 0800 AC 04/12 PO 0933 Clonazepam 0.5 MG DAILY 04/12 1000 AC 04/12 PO 04/19 0959 0933 Clonazepam 1 MG AT BEDTIME 04/10 2200 AC 04/11 PO 04/17 2159 2126 Clotrimazole 1 JUDITH BID PRN 04/11 1315 AC TOP Docusate Sodium 100 MG BID 04/11 1125 AC 04/12 PO 0933 Gabapentin 400 MG 0800,1400,04/10 1400 AC 04/12 PO 1325 Hydroxyzine HCl 50 MG Q6PRN PRN 04/10 1115 AC 04/12 PO 1327 Ibuprofen 600 MG Q6P PRN 04/09 1645 AC PO Lamotrigine 25 MG DAILY 04/11 1126 AC 04/12 PO 0933 Magnesium Hydroxide 30 ML AT BEDTIME PRN 04/09 1630 AC 04/11 PO 0711 Metronidazole 500 MG 0800,1400,04/10 2200 AC 04/12 PO 03/ 1401 1325 Omeprazole 40 MG 0700,04/10 0700 AC 04/12 PO 0656 Senna/Docusate Sodium 1 TAB BID 04/11 1125 AC 04/12 PO 0933 Trazodone HCl 50 MG AT BEDTIME 04/10 2200 AC 04/11 PO 2124 Triamcinolone 1 JUDITH BID PRN 04/11 1315 AC Acetonide TOP Vital Signs Date Time Temp Pulse Resp B/P Pulse O2 O2 Flow FiO2 Ox Delivery Rate 04/12 1551 90 127/67 04/12 1221 80 124/69 04/12 0740 97.6 74 136/65 04/11 1943 99.0 91 120/75 ASSESSMENT: I met the patient for the first time today, along with social media designer Chrystal. Patient reports that she feels that she is doing better since her arrival here. She reports that she feels that her biggest problem is medication adherence, "I have a problem taking my meds. I forget." We suggested that the patient have a visiting nurse, which she accepted readily. States that she feels better when she is taking her medications. States that she has been clean from crack cocaine since December 2015, quit drinking in January 2016, and quit smoking cigarettes in January 2016. Medication list from [facility] reviewed. Patient currently prescribed on an outpatient basis: 450 mg of Wellbutrin extended release; 400 mg of gabapentin 3 times daily; Klonopin 1 mg twice daily, as per [facility]. Depression:0/10; Anxiety:0/10 (with 10 the worst.) Denies suicidal ideation, homicidal ideation, auditory hallucinations, visual hallucinations, paranoid ideation. Patient states and also believes that she will not kill herself. Some difficulty sleeping last night. Speech is well articulated, goal-directed, average in rate, volume and tone. The patient understands the risks/benefits/side effects of the medication and is agreeable to continue taking them. PLAN: Family meeting tomorrow. Patient states that she would like to return to her outpatient prescriber, and outpatient clinician at [facility]. Does not want to attend IOP at [facility]. Continue with current management as patient is improving. Continue to provide support and encouragement.
[2016-04-12 19:40] VITALS: BP 110/66
--- NOTE | 2016-04-12 21:14 | NUR ---
PT IS COOPERATIVE WITH STAFF AND PEERS, AND COMPLIANT WITH UNIT RULES. PT IS IN [place], INTERACTING WELL WITH OTHERS. PT MOOD IS STABLE, AFFECT IS FULL RANGE, COMMUNICATION CAN AT TIMES BE DESCRIBED LOUD AND PRESSURED, BUT MOST OF THE TIME IT IS NORMAL, AND APPETITE IS NORMAL. PT DENIES SI AT THIS TIME.
--- NOTE | 2016-04-13 04:44 | NUR ---
PT READ IN BED AND THEN APPEARED TO SLEEP THRU THE NIGHT.
[2016-04-13 07:40] VITALS: BP 102/76
--- NOTE | 2016-04-13 11:23 | SOCIAL WORKER PROG NOTE PSYCH ---
Social Work Progress Note Progress Note Pt had a family session with her parents, it was productive pt denies si/hi/ah/ vh. She is focused on improvements she can make in her life, including getting rid of her boyfriend, and looking for a job. Pt family are in agreement and supportive of her discharge. Pt agrees with referral to [facility], and is prepared for discharge tomorrow.
[2016-04-13 12:30] VITALS: BP 143/69
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
--- NOTE | 2016-04-13 12:50 | NUR ---
PT IS OUT IN COMMUNITY INTERACTING WELL WITH STAFF AND PEERS. PT IS COMPLIANT AND COOPERATIVE WITH UNIT RULES. PT MOOD IS STABLE WITH A FULL RANGE AFFECT. PT IS ACTIVE IN GROUPS. PT DENIES SI THOUGHTS.
--- NOTE | 2016-04-13 13:28 | SOCIAL WORKER PROG NOTE PSYCH ---
Social Work Progress Note Progress Note Referral made to [facility], and will begin services the day after discharge.
[2016-04-13 15:53] VITALS: BP 134/73
--- NOTE | 2016-04-13 17:35 | NUR ---
EARLIER THIS PM, PT TEARFUL "NOT FEELING RIGHT IN MY HEAD" AFTER EMOTIONAL MEETING WITH HOSPITAL GR[facility]ER WATCH PARTS. RN SPOKE WITH BERENICE DEE APRN WHO SAID RN CAN ADMINISTER PRN ATARAX EARLY. ATARAX 50 MG ADMINISTERED. PT REPORTED POSITIVE EFFECT "I FEEL SO MUCH BETTER NOW. THANK YOU."
[2016-04-13 20:07] VITALS: BP 128/61
--- NOTE | 2016-04-13 21:53 | NUR ---
Pt is out in the community mood is stable, Pt looks tired and slurs walks around with a stable gait. Vital signs are stable c/o no pain. Pt appetite is good. Will continue to monitor the pt overnight.
[2016-04-14 07:32] VITALS: BP 111/65
--- NOTE | 2016-04-14 11:30 | SOCIAL WORKER PROG NOTE PSYCH ---
Social Work Progress Note Progress Note Patient was informed today that due to noticeable mood lability on the unit, patients meds are going to be adjusted today and the treatment team agrees that patient should remain in the hospital for a few more days. Patient responded appropriately to this information and was cooperative with new treatment plan. Patient reported auditory hallucinations this AM when she was in the shower. She reported that she thought she heard someone calling her name but does realize that there was no one really there. Patient reports a hx of visual hallucinations, stating that she has seen dark shadows and a eran shadow with a top hat. Patient denies seeing these visual hallucinations since being in the hospital but reports seeing them most recently right before she entered the hospital. Patient denies SI at present and mood appeared normal today with constricted affect. Patient is aware that we are tentatively planning for discharge early next week.
[2016-04-14 12:31] VITALS: BP 120/64
--- NOTE | 2016-04-14 12:51 | NUR ---
PT WAS VISIBLE MOST OF THE DAY IN THE [place]. HER GOAL WAS TO FIGURE OUT DISCHARGE PLANS. PT DID ATTEND PLANNING MEETING AND PART OF ART GROUP, BUT DID NOT ATTEND FOCUS GROUP TODAY. SHE HAS BEEN COMPLIANT ABOUT THE RULES OF THE UNIT, AND EATING WELL. PT DENIES THOUGHTS TO HURT HERSELF WHEN ASKED.
--- NOTE | 2016-04-14 12:58 | CP SOUTH PROGRESS NOTE PSYCH ---
Psych (Inpt) Progress Note Progress Note Progress Note: I discussed this patient's progress to date, current mental status, treatment process in the context of the treatment plan, and discharge planning with staff/ team in the daily morning inpatient team meeting. I also met with the patient myself in individual session. A total of 25 minutes was spent with the patient with more than 50% spent in counseling and/or coordination of care. SUBJECTIVE: "I see shadow people, I've been seeing them for a couple of years. Sometimes I think there are ghosts. Sometimes I hear people call my name." OBJECTIVE: EKG today: Normal Sinus Rhythm. Pulse 73. Qtc 437. Current Medications Sig/Micaela Start time Last Medication Dose Route Stop Time Status Admin Al Hydroxide/Mg 30 ML Q4-6 PRN PRN 04/09 1630 AC 04/11 Hydroxide PO 1837 Aripiprazole 10 MG 0800 04/14 1530 UNVr PO Bupropion HCl 450 MG DAILY@0800 04/10 0800 AC 04/14 PO 0818 Clonazepam 0.5 MG DAILY 04/12 1000 AC 04/14 PO 04/19 0959 0819 Clonazepam 1 MG AT BEDTIME 04/10 2200 AC 04/13 PO 04/17 2159 2145 Clotrimazole 1 JUDITH BID PRN 04/11 1315 AC TOP Docusate Sodium 100 MG BID 04/11 1125 AC 04/14 PO 0818 Gabapentin 300 MG 0800,1300,0 04/14 2200 UNVr PO Gabapentin 400 MG 0800,1400,0 04/10 1400 DC 04/14 PO 1500 Hydroxyzine HCl 50 MG .STK-MED ONE 04/13 2255 DC PO 04/13 2256 Hydroxyzine HCl 50 MG .STK-MED ONE 04/13 1547 DC PO 04/13 1548 Hydroxyzine HCl 50 MG Q6PRN PRN 04/10 1115 AC 04/14 PO 1154 Ibuprofen 600 MG Q6P PRN 04/09 1645 AC 04/14 PO 1154 Lamotrigine 25 MG DAILY 04/11 1126 DC 04/14 PO 0818 Magnesium Hydroxide 30 ML AT BEDTIME PRN 04/09 1630 AC 04/11 PO 0711 Metronidazole 500 MG 0800,1400,0 04/10 2200 AC 04/14 PO 04/17 1401 1501 Omeprazole 40 MG 0700,04/10 0700 AC 04/14 PO 0649 Senna/Docusate Sodium 1 TAB BID 04/11 1125 AC 04/13 PO 2144 Trazodone HCl 100 MG AT BEDTIME 04/14 2199 UNVr PO Trazodone HCl 50 MG AT BEDTIME 04/10 2200 DC 04/13 PO 2301 Triamcinolone 1 JUDITH BID PRN 04/11 1315 AC Acetonide TOP ASSESSMENT: Today patient reports that she suffers from severe mood lability. States that she is very impulsive. "I'm not very put together." She also reports a history of frequent auditory hallucinations of hearing her name being called, only to find that nobody is there. "The voices and shadows make me feel more crazy." As per nursing report, patient often acting on the unit in a hypomanic manner. States that she is open to trying a new medication. We reviewed the risks, benefits and side effects of both lithium and Abilify. At this time we will start Abilify for mood stability, and auditory and visual hallucinations. Patient verbalizes understanding that Abilify can cause akathisia, and dystonic reactions. Depression:0/10; Anxiety:0/10 (with 10 the worst.) Denies suicidal ideation, homicidal ideation,paranoid ideation. Speech is well articulated, goal-directed, average in rate, volume and tone. Patient is logical, alert and oriented 3, cooperative and pleasant. The patient understands the risks/benefits/side effects of the medication and is agreeable to continue taking them. Patient states and also believes that she will not kill herself. PLAN: Start Abilify today for mood stability, auditory and visual hallucinations. Discontinue lamotrigine. Patient had a difficult time sleeping last night, increase trazodone from 50 mg to 100 mg at bedtime. He should feels that gabapentin may be making her feel "flat", decreased gabapentin dose to 300 mg 2 times daily. Continue with current management as patient is improving. Continue to provide support and encouragement.
[2016-04-14 15:32] VITALS: BP 129/65
[2016-04-14 19:42] VITALS: BP 128/64
--- NOTE | 2016-04-14 21:29 | NUR ---
PT IS CALM, COOPERATIVE WITH STAFF AND PEERS, AND COMPLIANT WITH UNIT RULES. PT IS REMAINS IN [place], INTERACTING WELL WITH OTHERS. MOOD IS STABLE, AFFECT IS BRIGHT TO FULL RANGE, COMMUNICATION IS NORMAL, THOUGH SLIGHTLY HYPERVERBAL AND LOUD, AND APPETITE IS NORMAL. PT DENIES SI AT THIS TIME.
--- NOTE | 2016-04-15 06:35 | NUR ---
PATIENT SLEPT ALL NIGHT; SHE REPORTED NAUSEA THIS AM; DR. BROWN CALLED, AND PER MD NAUSEA MIGHT BE RELATED TO FLAGYL THAT WAS TAKEN AND THAT ZOFRAN WOULD NOT BE ADVISABLE; PRILOSEC GIVEN.
[2016-04-15 08:09] VITALS: BP 127/75
--- NOTE | 2016-04-15 09:00 | CP SOUTH PROGRESS NOTE PSYCH ---
Psych (Inpt) Progress Note Progress Note Progress Note: I discussed this patient's progress to date, current mental status, treatment process in the context of the treatment plan, and discharge planning with staff/ team in the daily morning inpatient team meeting. I also met with the patient myself in individual session. SUBJECTIVE: "I'm having some nausea, I didn't sleep well last night. That's not unusual for me. I get nauseous about twice a week. I don't think it's the new medicine." OBJECTIVE: Current Medications Sig/Micaela Start time Last Medication Dose Route Stop Time Status Admin Al Hydroxide/Mg 30 ML Q4-6 PRN PRN 04/09 1630 AC 04/11 Hydroxide PO 1837 Aripiprazole 10 MG .STK-MED ONE 04/14 1610 DC PO 04/14 161 Aripiprazole 10 MG 0800 04/14 1530 AC 04/14 PO 1616 Bupropion HCl 450 MG DAILY@0800 04/10 0800 AC 04/14 PO 0818 Clonazepam 0.5 MG DAILY 04/12 1000 AC 04/14 PO 04/19 0959 0819 Clonazepam 1 MG AT BEDTIME 04/10 2200 AC 04/14 PO 04/17 2159 2151 Clotrimazole 1 JUDITH BID PRN 04/11 1315 AC TOP Docusate Sodium 100 MG BID 04/11 1125 AC 04/14 PO 2150 Fluconazole 150 MG ONCE ONE 04/15 0900 UNVr PO 04/15 0901 Gabapentin 300 MG 0800,1300,2200 04/14 2200 AC 04/14 PO 2151 Gabapentin 400 MG 0800,1400,0 04/10 1400 DC 04/14 PO 1500 Hydroxyzine HCl 50 MG .STK-MED ONE 04/14 1811 DC PO 04/14 1812 Hydroxyzine HCl 50 MG .STK-MED ONE 04/14 1149 DC PO 04/14 1150 Hydroxyzine HCl 50 MG Q6PRN PRN 04/10 1115 AC 04/14 PO 1817 Ibuprofen 600 MG Q6P PRN 04/09 1645 AC 04/14 PO 1154 Lamotrigine 25 MG DAILY 04/11 1126 DC 04/14 PO 0818 Magnesium Hydroxide 30 ML AT BEDTIME PRN 04/09 1630 AC 04/11 PO 0711 Metronidazole 500 MG 0800,1400,2200 04/10 2200 DC 04/14 PO 04/17 1401 2150 Omeprazole 40 MG 0700,04/10 0700 AC 04/15 PO 0602 Senna/Docusate Sodium 1 TAB BID 04/11 1125 AC 04/14 PO 2151 Trazodone HCl 100 MG AT BEDTIME 04/14 2200 AC 04/14 PO 2150 Trazodone HCl 50 MG AT BEDTIME 04/10 2200 DC 04/13 PO 2301 Triamcinolone 1 JUDITH BID PRN 04/11 1315 AC Acetonide TOP Vital Signs Date Time Temp Pulse Resp B/P Pulse O2 O2 Flow FiO2 Ox Delivery Rate 04/15 0809 97.2 83 127/75 04/14 1942 97.1 85 128/64 04/14 1532 76 129/65 04/14 1231 77 120/64 ASSESSMENT: Patient reports difficult time sleeping last night, had dreams of her boyfriend/ex-boyfriend. States she has nausea approximately twice a week. Although she does not feel that well this morning, states that this is often her baseline. Patient also reports having mild tremors in her upper extremities bilaterally. We discussed the possibility that this could be akathisia related to Abilify. Patient declined medication for akathisia, also stating that she did not want to stop the Abilify. She would like to see how she feels later on in the day, and will report back to me later. Dr. Pizarro in to see patient who complains of lower extremity edema. HCTZ ordered as per Dr. Pizarro, who will review echocardiogram from last year. Zofran prn OK for nausea as per Dr. Pizarro. Depression:5/10; Anxiety:5/10 (with 10 the worst.) Denies suicidal ideation, homicidal ideation, auditory hallucinations, visual hallucinations, paranoid ideation. Patient states that also believes that she will not kill herself. She reports poor appetite, but will try to eat some oatmeal this morning, hoping that this will help relieve her nausea. Diflucan once today, and then stop, for yeast infection as per Dr. Sexton. Speech is well articulated, goal-directed, average in rate, volume and tone. The patient understands the risks/benefits/side effects of the medication and is agreeable to continue taking them. PLAN: Zofran prn nausea. HCTZ daily for lower extremity edema. Continue with other current management as patient is improving. Continue to provide support and encouragement.
[2016-04-15 12:10] VITALS: BP 124/69
--- NOTE | 2016-04-15 12:50 | NUR ---
Dr. Pizarro met with pt re: c/o fluid retention, labs ordered for 3/3 and awaiting any further orders from MD, pt is overall stable.
--- NOTE | 2016-04-15 13:06 | SOCIAL WORKER PROG NOTE PSYCH ---
Social Work Progress Note Progress Note Met with pt she was calm and cooperative, she states she was having mood swings, and understands the med changes that are taking place. Pt agreeable to discharge planning for next week. She feels supported by parents, confirms she no longer wants to be in a relationship with her ex bf, and she reports "feeling hopeful". Denies si, reports VH.
--- NOTE | 2016-04-15 13:37 | NUR ---
PT WAS VISIBLE IN THE [place] MOST OF THE DAY. SHE ATTENDED PLANNING MEETING BUT NOT FOCUS GROUP. IN PLANNING MEETING, WAS A BIT IRRITABLE BECAUSE HER FOOD DID NOT COME DOWN WITH THE OTHER TRAYS AND SHE WANTED TO SHOWER. AFTER GETTING OUT OF THE SHOWER PT WAS BETTER. SHE HAS BEEN INTERACTING WITH HER PEERS AND DENIES THOUGHTS OF HURTING SELF WHEN ASKED.
--- NOTE | 2016-04-15 14:52 | PN- Att Addend ---
Attending Addendum Attending Brief Note S: Called to evaluate lower extremity swelling/abdominal bloating. The patient describes some swelling since being admitted. No pain in legs. Has also had some nausea. Does have h/o OP ECHO with Dr. Briseno in the past (no treatment). Denies dyspnea. Is due for period soon per patient. O: VS: Vital Signs Date Time Temp Pulse Resp B/P Pulse O2 O2 Flow FiO2 Ox Delivery Rate 04/15 1210 82 124/69 04/15 0809 97.2 83 127/75 04/14 1942 97.1 85 128/64 04/14 1532 76 129/65 Current Medications Sig/Micaela Start time Last Medication Dose Route Stop Time Status Admin Al Hydroxide/Mg 30 ML Q4-6 PRN PRN 04/09 1630 AC 04/11 Hydroxide PO 1837 Aripiprazole 10 MG .STK-MED ONE 04/14 1610 DC PO 04/14 1611 Aripiprazole 10 MG 0800 04/14 1530 04/15 PO 0908 Bupropion HCl 150 MG 0800 04/16 0800 AC PO Bupropion HCl 450 MG DAILY@0800 04/10 0800 DC 04/15 PO 0908 Clonazepam 0.5 MG DAILY 04/12 1000 AC 04/15 PO 04/19 0959 0910 Clonazepam 1 MG AT BEDTIME 04/10 2200 AC 04/14 PO 04/17 2159 2151 Clotrimazole 1 JUDITH BID PRN 04/11 1315 DC TOP Docusate Sodium 100 MG BID 04/11 1125 AC 04/15 PO 0908 Fluconazole 150 MG ONCE ONE 04/15 0900 DC 04/15 PO 04/15 0901 1105 Gabapentin 300 MG 0800,1300,0 04/14 2200 04/15 PO 1331 Gabapentin 400 MG 0800,1400,0 04/10 1400 DC 04/14 PO 1500 Hydrochlorothiazide 12.5 MG 0800 04/15 1230 AC 04/15 PO 1423 Hydroxyzine HCl 50 MG .STK-MED ONE 04/14 1811 DC PO 04/14 1812 Hydroxyzine HCl 50 MG Q6PRN PRN 04/10 1115 AC 04/15 PO 1335 Ibuprofen 600 MG Q6P PRN 04/09 1645 AC 04/14 PO 1154 Lamotrigine 25 MG DAILY 04/11 1126 DC 04/14 PO 0818 Magnesium Hydroxide 30 ML AT BEDTIME PRN 04/09 1630 AC 04/11 PO 0711 Metronidazole 500 MG 0800,1400,04/10 2200 DC 04/14 PO 04/17 1401 2150 Omeprazole 40 MG 0700,04/10 0700 AC 04/15 PO 0602 Ondansetron HCl 4 MG Q6-PRN PRN 04/15 1230 AC PO Senna/Docusate Sodium 1 TAB BID 04/11 1125 AC 04/15 PO 0909 Trazodone HCl 100 MG AT BEDTIME 04/14 2200 AC 04/14 PO 2150 Trazodone HCl 50 MG AT BEDTIME 04/10 2200 DC 04/13 PO 2301 Triamcinolone 1 JUDITH BID PRN 04/11 1315 AC Acetonide TOP Physical Exam: Chest: clear to auscultation Cor: RRR nl S1, S2 w/o murm Abd: BS+, slightly distended, - HSM, - tenderness Ext: trace-1+ edema w/o tenderness or cords palpable Impression/Plan: #Lower Extremity Edema- patient is due for period soon. Most likely secondary to excessive sodium intake. No evidence of cardiac disease or renal disease. LFT's/ renal function normal on admission. Plan: Will re-check electrolytes/BUN/Cr and LFT's in morning. Low sodium diet. HCTZ 12.5 mg daily for a few days. Will follow swelling. Will check prior ECHO results (done by Dr. Briseon).
[2016-04-15 16:10] VITALS: BP 124/75
[2016-04-15 19:44] VITALS: BP 131/63
--- NOTE | 2016-04-15 21:17 | NUR ---
PT IS CALM, COOPERATIVE WITH STAFF AND PEERS, AND COMPLINAT WITH UNIT RULES. PT IS IN [place], INTERACTING WELL WITH OTHERS. MOOD IS STABLE, AFFECT IS BRIGHT TO FULL RANGE, COMMUNICATION IS HYPERVERBAL AT TIMES, AND APPETITE IS NORMAL. PT DENIES SI AT THIS TIME.
--- NOTE | 2016-04-15 22:23 | NUR ---
2033 PT. REPORTED TO THIS NURSE NOTICED A RASH DEVELOPING ON NECK AND CHEST. REPORTED TO DR. LUTZ.
[2016-04-16 07:47] VITALS: BP 97/64
[2016-04-16 12:27] VITALS: BP 116/70
--- NOTE | 2016-04-16 13:24 | CP SOUTH PROGRESS NOTE PSYCH ---
Psych (Inpt) Progress Note Progress Note Progress Note: I discussed this patient's progress to date, current mental status, treatment process in the context of the treatment plan, and discharge planning with staff/ team in the daily morning inpatient team meeting. I also met with the patient myself in individual session. SUBJECTIVE: "I feel like it's something in the bathroom, calling me. But then no one is there." OBJECTIVE: Current Medications Sig/Micaela Start time Last Medication Dose Route Stop Time Status Admin Al Hydroxide/Mg 30 ML Q4-6 PRN PRN 04/09 1630 AC 04/11 Hydroxide PO 1837 Aripiprazole 15 MG 0800 04/17 0800 UNVr PO Aripiprazole 10 MG 0800 04/14 1530 DC 04/16 PO 0846 Bupropion HCl 150 MG 0800 04/16 0800 r 04/16 PO 04/17 1000 0847 Clonazepam 0.5 MG DAILY 04/12 1000 AC 04/16 PO 04/19 0959 0848 Clonazepam 1 MG AT BEDTIME 04/10 2200 AC 04/15 PO 04/24 2158 2135 Docusate Sodium 100 MG BID 04/11 1125 AC 04/16 PO 0846 Gabapentin 300 MG 0800,1300,0 04/14 2200 AC 04/16 PO 1244 Hydrochlorothiazide 12.5 MG 0800 04/15 1230 AC 04/16 PO 0846 Hydroxyzine HCl 50 MG .STK-MED ONE 04/15 2314 DC PO 04/15 2315 Hydroxyzine HCl 50 MG Q6PRN PRN 04/10 1115 AC 04/16 PO 1451 Ibuprofen 600 MG Q6P PRN 04/09 1645 AC 04/16 PO 1451 Magnesium Hydroxide 30 ML AT BEDTIME PRN 04/09 1630 AC 04/15 PO 1827 Omeprazole 40 MG 0700,04/10 0700 AC 04/16 PO 0625 Ondansetron HCl 4 MG Q6-PRN PRN 04/15 1230 AC 04/15 PO 1827 Propranolol HCl 10 MG 0800,04/15 1515 AC 04/16 PO 0846 Senna/Docusate Sodium 1 TAB BID 04/11 1125 AC 04/16 PO 0847 Trazodone HCl 100 MG AT BEDTIME 04/14 2200 AC 04/15 PO 2138 Triamcinolone 1 JUDITH BID PRN 04/11 1315 AC Acetonide TOP Laboratory Tests 04/16 0630 Chemistry Sodium (137 - 145 mmol/L) 139 Potassium (3.5 - 5.1 mmol/L) 4.5 Chloride (98 - 107 mmol/L) 102 Carbon Dioxide (22 - 30 mmol/L) 29 Anion Gap (5 - 16) 8 BUN (7 - 17 mg/dL) 9 Creatinine (0.5 - 1.0 mg/dL) 0.9 Estimated GFR (>60 ml/min) > 60 BUN/Creatinine Ratio (7 - 25 %) 10.0 Total Bilirubin (0.2 - 1.3 mg/dL) 0.5 Direct Bilirubin (< 0.4 mg/dL) 0.4 AST (14 - 36 U/L) 33 ALT (9 - 52 U/L) 44 Alkaline Phosphatase (<127 U/L) 52 Total Protein (6.3 - 8.2 g/dL) 7.0 Albumin (3.5 - 5.0 g/dL) 4.0 Vital Signs Date Time Temp Pulse Resp B/P Pulse O2 O2 Flow FiO2 Ox Delivery Rate 04/16 1613 73 119/67 04/16 1227 69 116/70 04/16 0846 97.6 82 14 97/64 04/16 0747 97.6 82 97/64 04/15 2135 98.4 82 14 131/63 04/15 1944 98.4 82 131/63 04/15 1722 97.2 89 14 124/75 ASSESSMENT: Patient reports that she is feeling well. Propranolol seems to be helping with her "shaking". Zofran help with nausea denies depression or suicidal ideation, although anxiety continues. As per nursing report, patient is acting appropriately, not exhibiting hypomanic behavior on the unit. Patient also reports improvement in her lower extremity edema, after starting hydrochlorothiazide. Reports tolerating Abilify well, apparently to good effect. She does however report racing thoughts at nighttime, was able to fall asleep after trazodone and Atarax at bedtime. I spoke today with her outpatient provider, Ashley Soni APRN, at [facility], to review the patient's course of treatment. Depression:0/10; Anxiety: 5/10 (with 10 the worst.) Denies suicidal ideation, homicidal ideation, visual hallucinations, paranoid ideation. Auditory hallucinations continue. Speech is well articulated, goal-directed, average in rate, volume and tone. Calm, Cooperative, pleasant, logical. Alert and oriented 3. The patient understands the risks/benefits/side effects of the medication and is agreeable to continue taking them. PLAN: Abilify 15 mg for continuing mood instability and auditory hallucinations. Consider discontinuing Wellbutrin after Tuesday's dose. Continue with other current management as patient is improving. Continue to provide support and encouragement.
--- NOTE | 2016-04-16 14:08 | NUR ---
PT IS STABLE WITH BRIGHT, FULL RANGE OF AFFECT. PT IS VISIBLE WITHIN THE COMMUNITY AND INTERACTING WITH PEERS/STAFF. PT IS APPROPRIATE, CALM, COMPLIANT. ATTENDING ALL GROUPS, CURRENTLY IN ART THER[employer]Y GROUP. PT IS NO LONGER LABILE. GOAL FOR TODAY WAS TO KEEP POSITIVE MINDSET. VS ARE STABLE AND DENIES ANY SI/HI TO THIS MHW.
--- NOTE | 2016-04-16 14:50 | SOCIAL WORKER PROG NOTE PSYCH ---
Social Work Progress Note Progress Note Patient presents with brighter mood and affect today. She reports feeling generally better with her recent med changes and reports being greatful she has decided to stay in the hospital longer then initially a. Patient denies SI/HI/AH /VH at present and is anticipating discharge for Tuesday. Patient offers little complaints at present and has agreed to follow through with treatment at [facility] post discharge from the hospital. Patient plans to prepare for discharge over the weekend, relax, and organize her goals for when she returns home.
[2016-04-16 16:13] VITALS: BP 119/67
[2016-04-16 19:33] VITALS: BP 117/73
--- NOTE | 2016-04-16 21:28 | NUR ---
PT IS CALM, COOPERATIVE WITH STAFF AND PEERS, AND COMPLIANT WITH UNIT RULES. PT IS IN [place], INTERACTING WELL WITH OTHERS. MOOD IS STABLE, AFFECT IS BRIGHT TO FULL RANGE, COMMUNICATION IS OPRGANIZED AND AT TIMES HYPERVERBAL, APPETITE IS NORMAL. PT DENIES SI AT THIS TIME.
[2016-04-17 08:15] VITALS: BP 122/63
[2016-04-17 12:14] VITALS: BP 123/67
--- NOTE | 2016-04-17 14:42 | NUR ---
PT IS OUT IN THE COMMUNITY INTERACTING WELL WITH STAFF AND PEERS. PT IS ACTIVE IN GROUPS. PT IS COMPLIANT WITH UNIT RULES AND IS SOCIAL WITH PEERS IN THE COMMUNITY. PT MOOD IS STABLE WITH A FULL RANGE AFFECT. PT DENIES SI THOUGHTS. NO COMPLAINTS OFFERED.
[2016-04-17 16:02] VITALS: BP 111/60
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
[2016-04-17 19:07] VITALS: BP 123/71
--- NOTE | 2016-04-17 20:51 | NUR ---
PT IS OUT IN THE COMMUNITY AND INTERACTING WITH PEERS/STAFF. STABLE MOOD WITH BRIGHT, FULL RANGE OF AFFECT. PT HAS BEEN IN THE KITCHEN ALL EVENING SHIFT PLAYING CARDS/BOARD GAMES. VERY PLESANT/COOPERATIVE AND COMPLIANT. VS ARE STABLE AND DENIES ANY SI/HI TO THIS MHW.
--- NOTE | 2016-04-18 06:17 | NUR ---
PT APPEARED TO SLEEP WELL. PT'S SON VISITED ON EVENINGS.
[2016-04-18 07:50] VITALS: BP 128/64
[2016-04-18 12:16] VITALS: BP 125/59
--- NOTE | 2016-04-18 13:57 | NUR ---
Pt has been visible most of the day on the unit, mood stable with less lability, full range affect, pleasant and respectful to staff and peers, social, appropriate, VSS, attending all groups today and physically adjusting to medications reported "feeling just a little out of it" and encouraged to share this with Dr. Quigley today when she meets with MD, verbalized understanding, pt is A&O x 4 with no other issues or complaints reported or observed.
[2016-04-18 16:05] VITALS: BP 121/60
[2016-04-18 19:17] VITALS: BP 141/63
--- NOTE | 2016-04-18 20:04 | CP SOUTH PROGRESS NOTE PSYCH ---
Psych (Inpt) Progress Note Progress Note The patient was seen for follow-up for bipolar disorder, most recent episode depressed, currently in partial remission. The patient was discussed with the nursing staff and seen individually. The patient is complaining of feeling very tired. She was also complaining of not having the energy she used to have before. She was stating that she has not been given Wellbutrin and relates this to her fatigue. Upon review all of the progress notes from the current hospitalizations, the patient has been receiving one hundred and 50 mg of WellbutrinXL with intent to discontinue today, therefore he did not receive the medication today. The patient denies suicidal/homicidal ideation, auditory/visual hallucinations, or side effects from the medications. The patient understands the risks/benefits/side effects of the medication and is agreeable to continue taking them. The patient agreed to restart Wellbutrin at 300 mg daily which was ordered for her. We will continue present management, observation, symptom monitoring, and discharge planning. The patient will be followed up daily by the unit psychiatrist.
--- NOTE | 2016-04-18 21:28 | NUR ---
PT IS STABLE WITH FULL RANGE OF AFFECT. VISIBLE WITHIN THE COMMUNITY AND ITNERACTING WITH PEERS/STAFF. VERY APPROPRIATE-- BUBBLY, LAUGHING BUT NO EXTREME MOOD LABILITY PRESENT. CALM, COOPERATIVE AND COMPLIANT. CURRENTLY WATCHING TV IN THE LOUNGE WITH PEERS. VS ARE STABLE AND DENIES ANY SI/HI TO THIS MHW.
--- NOTE | 2016-04-19 05:43 | NUR ---
PATIENT WAS AWAKE AT 0400, REPORTING NAUSEA AND CRAMPS; SHE WAS GIVEN PRN IBUPROFEN 600MG AND SALTINE CRACKERS AND WAS ABLE TO RETURN TO SLEEP.
[2016-04-19 07:35] VITALS: BP 121/63
--- NOTE | 2016-04-19 08:08 | DISCHARGE SUMMARY REPORT-PSYCH ---
Visit Information Visit Dates/Diagnosis' Admission Date: 04/09/16 Discharge Date: 04/19/16 Reason for Admission: Patient was referred to the ED by her clinician at [facility] with a complaint of unstable mood and suicidal ideation. Psy Discharge Primary Diag: Bipolar Disorder Psy Discharge Secondary Diag: Asthma; GERD; cholecystectomy. Bacterial vaginosis , Hospital Course Significant Lab Findings: Lab TSH 1.340 uIU/mL 04/09/16 1356 Total Beta HCG NEGATIVE 04/09/16 1356 Course Complications: Patient was seen by OBGYN Dr. Sexton, and was prescribed Fluconazole for a yeast infection. Please refer to Dr. Sexton's note for further information. Patient was seen by hospitalist Dr. Pizarro to evaluate lower extremity swelling/ abdominal bloating. She was medicated with Hydrochlorothiazide. Please refer to Dr. Pizarro note for additional information. Consultations: Pt was seen for admission history and physical by Dr. Maxwell. Please refer to her note for additional information. Allergies: Coded Allergies: oxycodone (Intermediate, ITCHY/RASH 04/09/16) Hospital Course/TX Response: The patient was monitored on the unit for safety, mood stability, auditory and visual hallucinations, depression and suicidal ideation. She participated in multi-modal treatments on the unit. She was medicated with Abilify for mood stability, Propranolol for report of tremors, which may have been mild akathisia. She was also medicated with Gabapentin for anxiety. Wellbutrin was continued at a lower dose, for depression. Clonazepam was continued at a lower dose for anxiety. A family meeting was held along with our unit licensed social worker, myself, the patient and both of her parents. Her parents promised their continuing support. Today, the day of discharge, she reports feeling safe and ready for discharge. Tolerating her medications well, to good effect. Presents this morning in a positive, and appropriate upbeat mood. She reports that she doesn't feel any tremulousness or palpitations after starting propranolol. States that hydrochlorothiazide is helping with her lower extremity edema, and she is feeling much better. States that she will follow-up with her primary care doctor, Dr. Badillo. Patient has invited to her home another female patient, who is also being discharged today. I had a conversation with Rosmery about this last Tuesday, and another conversation today. We discussed this living arrangement. I gave her the recommendation of our team, that this would not be a good idea at this time. We spoke about the patient's need to take care of herself at this time, and we discourage her from taking in another patient at this time. Patient verbalized understanding. Depression:0/10; Anxiety:0/10 (with 10 the worst.) He states that she feels that her moods are more stable. Denies suicidal ideation, homicidal ideation, auditory hallucinations, visual hallucinations, paranoid ideation. Patient states and also believes that she will not kill herself. Speech is well articulated, goal-directed, average in rate, volume and tone. Calm, cooperative and pleasant. Logical. Alert and oriented 3. The patient understands the risks/benefits/side effects of the medication and is agreeable to continue taking them. Patient reports tolerating her medications well, without complaint. States she feels safe and ready for discharge. Discharge HBIPS - Tobacco Use Treatment Offered Post DC Medications Offered: NA-No Tob Use >30 days Post DC Tobacco Treatment Plan: NA-No Tobacco use >30days - EtOH/Drug Use D/O Treatment Offered Post DC Medications Offered: Med Not Indicated for D/O Post DC EtOH/SubAbuse [place] Plan: Other SubAbuse/Dual Pgm ([facility]) Program Appt Date: 04/20/16 Program Appt Time: 1230 Metabolic Screening - Screen if on a Neuroleptic Medication - Metabolic screening should include: - Blood Pressure, BMI, Glucose or Hgb A1c, & a - Lipid profile from within the past 365 days. Metabolic Screening () Not Applicable, patient not on a neuroleptic. OR (x) Patient on a neuroleptic(s) . Enter below results for Glucose or Hemoglobin A1C, and lipid panel if obtained during the last 365 days. BMI: 33.600 Blood Pressure: 105/59 Laboratory Results (If applicable): Lab Cholesterol 189 MG/DL 06/21/14 UNK Cholesterol/HDL Ratio 3 % 06/21/14 UNK Glucose 119 mg/dL H 04/09/16 1356 HDL Cholesterol 64 mg/dL H 06/21/14 UNK LDL Cholesterol, Calc 112 mg/dL 06/21/14 UNK Triglycerides 65 mg/dL 06/21/14 UNK Discharge Instructions General Discharge Information Discharge Medications: Discharge Medications- (Dose, route, freq, indication): START taking these NEW Home Medications: Propranolol HCl Dose: ORAL, 0800,2200 for Qty: 28 Called in to (Propranolol HCl) 10 10 Milligram ANXIETY Refills: 0 Pharm 1 MG TABLET Last Taken:04/19/16 Time:8am Trazodone HCl Dose: ORAL, AT BEDTIME for Qty: 14 Called in to (Trazodone HCl) 100 100 Milligram SLEEP Refills: 0 Pharm 1 MG TABLET Last Taken:04/18/16 Time:10pm Aripiprazole Dose: ORAL, DAILY @8 AM for Qty: 14 Called in to (Abilify) 15 MG 15 Milligram MOOD STABILITY, CLEAR Refills: 0 Pharm 1 TABLET THOUGHTS Last Taken:04/19/16 Time:8am Hydrochlorothiazide Dose: ORAL, DAILY @8 AM for Qty: 14 Called in to (Hydrochlorothiazide) 12.5 EDEMA Refills: 0 Pharm 1 12.5 MG CAPSULE Milligram Last Taken:04/19/16 Time:8am Triamcinolone Dose: On the skin, TWICE DAILY Qty: 1 Called in to Acetonide 1 Application as needed for VULVA Refills: 0 Pharm 1 (Triamcinolone IRRITATION Acetonide) 0.1 % not taken in CREAM..G. hospital Hydroxyzine HCl Dose: ORAL, AT BEDTIME for Qty: 14 Called in to (Hydroxyzine HCl) 50 50 Milligram ANXIETY/INSOMNIA Refills: 0 Pharm 1 MG TABLET Last Taken:04/18/16 Time:10pm CONTINUE taking these Home Medications: Clonazepam (Clonazepam) Dose: ORAL, SEE INSTRUCTIONS 1 MG TABLET 1 Tablet for ANXIETY TAKE 1/2 TAB IN THE MORNING, AND ONE TAB AT BEDTIME. Last Taken:04/19/16 Time:8am Pantoprazole Sodium Dose: ORAL, TWICE DAILY for GI (Pantoprazole Sodium) 40 1 Tablet substituted with MG TABLET.DR heaton in hospital Last Taken:04/19/16 Time:8am Ibuprofen (Ibuprofen) Dose: ORAL, THREE TIMES DAILY 600 MG TABLET 1 Tablet as needed for PAIN with food Last Taken:04/19/16 Time:4am Gabapentin (Gabapentin) Dose: ORAL, THREE TIMES DAILY 400 MG CAPSULE 1 Capsule for MENTAL HEALTH Last Taken:04/19/16 Time:8am Bupropion HCl (Bupropion Dose: ORAL, Every Morning for Renewed XL) 300 MG TAB.ER.24H 1 Tablet MENTAL HEALTH Called in to Last Taken:04/19/16 Pharm 1 Time:8am STOP taking these DISCONTINUED Home Medications: Bupropion HCl (Bupropion XL) Dose: ORAL, Every Morning for MENTAL 150 MG TAB.ER.24H 1 Tablet HEALTH Reason Stopped: Changed Dose 1: [facility], [address], [place], [place] [id number] Your Preferred Pharmacy [facility] [address] [place] [address] Multiple Neuroleptics: (x) Not Applicable OR Document below three failed attempts at monotherapy, or a plan to taper to monotherapy, or augmentation of Clozapine. () Patient's Diet: Low Sodium Patient's Activity: No restrictions. DC Disposition: Patient is returning to her home. Recommendations: Follow up at [facility]. Take medications as directed. Referred To: [address] [place] [address] Angeles Marcos APRN 04/20/2016 at 1230pm Hilary Raygoza clinician 04/27/2016 at 08:30am Visiting nurse: [facility] Starting on 04/19/2016 Copies To: Alex; SUSANA ALCOCER,Lucas SOARES
--- NOTE | 2016-04-19 08:13 | CP SOUTH PROGRESS NOTE PSYCH ---
Psych (Inpt) Progress Note Progress Note Progress Note: I discussed this patient's progress to date, current mental status, treatment process in the context of the treatment plan, and discharge planning with staff/ team in the daily morning inpatient team meeting. I also met with the patient myself in individual session. SUBJECTIVE: "I needed the time here to get it into my head that it's over between me and Connor." OBJECTIVE: Current Medications Sig/Micaela Start time Last Medication Dose Route Stop Time Status Admin Al Hydroxide/Mg 30 ML Q4-6 PRN PRN 04/09 1630 AC 04/11 Hydroxide PO 1837 Aripiprazole 15 MG 0800 04/17 0800 AC 04/18 PO 0814 Bupropion HCl 300 MG 0800 04/19 0800 AC PO Clonazepam 0.5 MG DAILY 04/12 1000 AC 04/18 PO 04/19 0959 0816 Clonazepam 1 MG AT BEDTIME 04/10 2200 AC 04/18 PO 04/24 2158 2143 Docusate Sodium 100 MG BID 04/11 1125 AC 04/18 PO 2143 Gabapentin 300 MG 0800,1300,0 04/14 2200 AC 04/18 PO 2143 Hydrochlorothiazide 12.5 MG 0800 04/15 1230 AC 04/18 PO 0814 Hydroxyzine HCl 50 MG AT BEDTIME 04/17 2200 AC 04/18 PO 2142 Hydroxyzine HCl 50 MG Q6PRN PRN 04/10 1115 AC 04/17 PO 1935 Ibuprofen 600 MG Q6P PRN 04/09 1645 AC 04/19 PO 0404 Magnesium Hydroxide 30 ML AT BEDTIME PRN 04/09 1630 AC 04/15 PO 1827 Omeprazole 40 MG 0700,04/10 0700 AC 04/19 PO 0652 Ondansetron HCl 4 MG Q6-PRN PRN 04/15 1230 AC 04/15 PO 1827 Propranolol HCl 10 MG 0800,04/15 1515 AC 04/18 PO 2142 Senna/Docusate Sodium 1 TAB BID 04/11 1125 AC 04/18 PO 2143 Trazodone HCl 100 MG AT BEDTIME 04/14 2200 AC 04/18 PO 2142 Triamcinolone 1 JUDITH BID PRN 04/11 1315 AC Acetonide TOP Vital Signs Date Time Temp Pulse Resp B/P Pulse O2 O2 Flow FiO2 Ox Delivery Rate 04/19 0735 97.3 78 121/63 03/05 2142 141/63 03/05 1917 98.3 89 141/63 03/05 1605 78 121/60 03/05 1216 72 125/59 03/05 0814 85 128/64 ASSESSMENT: Patient reports feeling safe and ready for discharge. Tolerating her medications well, too good effect. Presents this morning in a positive, and appropriate upbeat mood. She reports that she doesn't feel any tremulousness or palpitations after starting propranolol. States that hydrochlorothiazide is helping with her lower extremity edema, and she is feeling much better. States that she will follow-up with her primary care doctor, Dr. Badillo. Patient has offered housing in her home to another female patient who is being discharged today. I had one conversation with her about this last Tuesday, and another conversation today. I told her that my recommendation, and the recommendation of our team, is that this would not be a good idea at this time. Patient verbalized understanding. Depression:0/10; Anxiety:0/10 (with 10 the worst.) He states that she feels that her moods are more stable. Denies suicidal ideation, homicidal ideation, auditory hallucinations, visual hallucinations, paranoid ideation. Patient states and also believes that she will not kill herself. Speech is well articulated, goal-directed, average in rate, volume and tone. Calm, cooperative and pleasant. Logical. Alert and oriented 3. The patient understands the risks/benefits/side effects of the medication and is agreeable to continue taking them. PLAN: Wellbutrin XL was increased to 300 mg daily as per the weekend attending physician. Discharge today. She will follow up at [facility], and her primary care physician. Continue with current management as patient is improving. Continue to provide support and encouragement.
--- NOTE | 2016-04-19 08:43 | NUR ---
Will be discharged today to [facility] and follow up at [facility]. Mood is stable, full range of affect. Denied thoughts of self harm when asked. Given education on suicide prevention, depression and bipolr d/o.
--- NOTE | 2016-04-19 10:10 | SOCIAL WORKER PROG NOTE PSYCH ---
Social Work Progress Note Progress Note Patient to discharge the hospital today. Patient denies SI/HI/AH/VH at present and reports feeling ready to return home today. Patient has agreed to have another patient stay with her temporarily. Patient reports that her parents are aware that the other patient will be staying with her and are in agreement with this plan. Patient states that she has rules arranged with other patient regarding staying in the house and following through with treatment from the hospital. Patient is aware that the treatment team is not in support of this plan and believe this could potentially put patient in a negative situation. Patient is aware but still reports a desire to have patient stay with her temporarily. Patient has agreed to continue to in treatment at [facility] and has an appointment with Angeles Marcos tomorrow, 04/20/16, and her clinician Hilary Raygoza on 04/27/16. [facility], has also been arranged for patient and will start distributing medications this evening to patient.
[2016-04-19] MEDS ORDERED: BUPROPION XL300 M1 PO (10:11)
[2016-04-19] MEDS ORDERED: PROPRANOLOL HCL10 M1 PO (11:06)
[2016-04-19] MEDS ORDERED: TRAZODONE HCL100 M1 PO (11:09)
[2016-04-19] MEDS ORDERED: HYDROCHLOROTH12.5 M3 PO (11:10)
[2016-04-19] MEDS ORDERED: HYDROXYZINE HCL50 M1 PO (11:10)
[2016-04-19] MEDS ORDERED: ABILIFY15 M1 PO (11:10)
[2016-04-19] MEDS ORDERED: TRIAMCINOLONE A15 G1 TOP (11:12)
[2016-04-19 12:16] VITALS: BP 105/59
== END 2016-04-19 13:25 | DRG 753 ==
LOC: ENRESERVDT → ENRESERVTM → ERH 12:17 → ENPENDDIS 17:57 → ERHI 17:57 → CP SOUTH 17:57
PROVIDERS: Emergency Medicine; ADMIT Psychiatry & Neurology Psychiatry
DX: F31.9 Bipolar disorder, unspecified (principal); J45.909 Unspecified asthma, uncomplicated; N76.0 Acute vaginitis; K21.9 Gastro-esophageal reflux disease without esophagitis; R10.2 Pelvic and perineal pain
CPT/HCPCS: 87070; 36415; 80307; 81003; 81025; 82436; 87071; 87389; 93005; 93010; G0480; J0401; J3101